=== PATIENT | male | born 1995 | race Caucasian/White ===

== ENCOUNTER 2020-06-29 18:50 | Emergency (ER) | payer BC ==
[~2020-06-29] VITALS: Ht 182.9 cm; Wt 83.0 kg
[2020-06-29 19:08] VITALS: BP 129/78
[2020-06-29] MEDS ORDERED: diphenhydrAMINE HCL 25 MG CAPSULE PO ONE (19:15)
--- NOTE | 2020-06-29 20:22 | PHYS DOC ---
Past History Past Medical History: No Pertinent History Past Surgical History: No Surgical History Alcohol Use: None Adult General Chief Complaint Chief Complaint: ALLERGIC REACTION HPI HPI Patient is a 24-year-old male who presents for allergic reaction. Reports being prescribed Bactrim 7 days ago for folliculitis and started developing nonspecific skin changes 5 days into treatment. Patient continued to take Bactrim medication and experienced worsened skin changes to all extremities and trunk. Patient took last dose of Bactrim today with improvement of folliculitis but admits worsened skin changes. Denies any pain, admits pruritus only at this time, no airway involvement. He has never taken Bactrim in the past Review of Systems Review of Systems Fourteen body systems of review of systems have been reviewed. See HPI for pertinent positives and negative responses, other brennan all other systems are negative, non-pertinent or non-contributory Current Medications Current Medications Current Medications Medications (Trade) Dose Ordered Sig/Nicolas Start Time Stop Time Status Last Admin Dose Admin Diphenhydramine HCl (Benadryl) 50 mg 1X ONCE 06/29/20 19:15 06/29/20 19:18 DC 06/29/20 19:15 50 MG Allergies Allergies Allergies Coded Allergies Type Severity Reaction Last Updated Verified Sulfa (Sulfonamide Antibiotics) Allergy Unknown 06/29/20 Yes Physical Exam Physical Exam Constitutional: Well developed, well nourished, no acute distress, non-toxic appearance. HENT: Normocephalic, atraumatic, bilateral external ears normal, oropharynx moist, no oral exudates, nose normal. Eyes: PERRLA, EOMI, conjunctiva normal, no discharge. Neck: Normal range of motion, no tenderness, supple, no stridor. Cardiovascular: Heart rate regular, sinus rhythm, no murmurs rubs or gallops Lungs & Thorax: Bilateral breath sounds clear to auscultation Abdomen: Bowel sounds normal, soft, no tenderness, no masses, no pulsatile connie s. Nonsurgical abdomen, no peritoneal signs Skin: Warm, dry, no erythema, diffuse morbilliform drug eruption located mostly on patient's trunk and extremities with minimal involvement to neck and face, no oral mucosal involvement, no involvement of palms and soles Back: No tenderness, no CVA tenderness. Extremities: No tenderness, no cyanosis, no clubbing, ROM intact, no edema. Neurologic: Alert and oriented X 3, grossly normal motor & sensory function, no focal deficits noted. Psychologic: Affect normal, judgement normal, mood normal. Current Patient Data Vital Signs Vital Signs Date Time Temp Pulse Resp B/P (MAP) Pulse Ox O2 Delivery O2 Flow Rate FiO2 06/29/20 19:08 97.9 93 16 129/78 (95) 99 Room Air EKG EKG [] Radiology/Procedures Radiology/Procedures [] Heart Score Risk Factors: Risk Factors: DM, Current or recent (<one month) smoker, HTN, HLP, family hi story of CAD, obesity. Risk Scores: Risk Factors: DM, Current or recent (<one month) smoker, HTN, HLP, family history of CAD, obesity. Course & Med Decision Making Course & Med Decision Making Hemodynamically stable, ABCs unremarkable Comprehensive history and physical exam performed consistent with most likely diagnosis of morbilliform drug eruption secondary to Bactrim consumption. Patient has finished Bactrim. He responded well to ER intervention that included 50 mg p.o. Benadryl administration with near total resolution of symptoms and significant improvement in patient's skin findings. Patient was monitored for greater than 90 minutes while in ER with no evidence of clinical deterioration and/or airway involvement. I discussed patient case at length with him, he has been living with similar rash for greater than 48 hours without airway involvement, I believe he is fit for discharge home. I discussed likely pathophysiology and course of resolution going forward, I advised him to take daily antihistamine such as Zyrtec and offered patient steroids for symptomatic improvement, he agreed, a total of 10 mg IM dexamethasone was administered prior to ER departure. Patient has good access to care in outpatient setting, I advised him to follow-up with his primary care physician in upcoming 1 to 6 days time for repeat examination. Also advised him to avoid Bactrim and other sulfa medications given reaction today. Strict return precautions were discussed with good understanding by patient, all questions and concerns addressed prior to ER departure in improved condition Quinn Disclaimer Quinn Disclaimer This electronic medical record was generated, in whole or in part, using a voice recognition dictation system. Departure Departure: Impression: Primary Impression: Allergic reaction to drug Disposition: 01 DC HOME SELF CARE/HOMELESS Condition: IMPROVED Referrals: PCP,UNKNOWN (PCP) Additional Instructions: As discussed prior to ER departure, please follow-up with your primary care physician in upcoming 1 to 10 days following this visit You were given Bactrim medication for your folliculitis, I would avoid this in the future as it appears he had an allergic drug reaction to this. I would also avoid any " sulfa" medications in the future. Please discuss this with your primary care physician to make sure it is put in your record If any concerning signs or symptoms present prior to outpatient follow-up please do not hesitate to come back for repeat examination It was a pleasure to take care of you and I wish you a speedy recovery MISAEL VASQUEZ DO Jun 29, 2020 20:22
[2020-06-29] MEDS ORDERED: DEXAMETHASONE SOD PHOS 10 MG/ML VIAL. IM ONE (20:30)
== END 2020-06-29 20:39 | disposition home or self-care (01) ==
LOC: ER 18:50
DX: R23.8 Other skin changes (principal); T36.8X5A Adverse effect of other systemic antibiotics, initial encounter; Z88.2 Allergy status to sulfonamides; Y92.89 Other specified places as the place of occurrence of the external cause
CPT/HCPCS: 96372; 99283; J1100; Q0163